=== PATIENT | female | born 1955 | race Caucasian/White ===

== ENCOUNTER 2016-10-27 11:08 | Outpatient (CLI) | payer MEDICARE, OTHER ==
[~2016-10-27 11:08] MED LIST: ALLOPURINOL100 MG PO; ASPIRIN 81MG TA81 MG PO; BACLOFEN 10MG T10 MG PO; CLARITIN 10MG T10 MG PO; CYMBALTA60 MG PO; FLEXERIL10 MG PO; FLONASE 50 MCG16 GM; HUMIRA40 MG/0.3 SQ; KEFLEX 500MG.500 MG PO; LASIX 40MG. TAB40 MG PO; LYRICA 100 MG100 MG PO; METOPROLOL 25 M25 MG PO; NORCO 325 MG-101 TAB PO; NOVOLIN 70/30 710 ML SC; PRAVACHOL80 M1 PO; PREDNISONE 2.52.5 MG PO; PREDNISONE 20MG20 MG PO; PROAIR HFA0.09 MG/AC IH; RANITIDINE HCL150 MG PO; SINGULAIR 10 MG10 MG PO; TIZANIDINE HCL 44 MG PO; VITAMIN D31000 IU PO
[2016-10-27 11:30] VITALS: BP 139/55
[2016-10-27 12:00] VITALS: BP 157/72
[2016-10-27 12:00] LABS: BUN 30 mg/dL (7-18)
[2016-10-27] MEDS ORDERED: XYZAL5 MG PO (12:09)
[2016-10-27 12:11] LABS: GFR (ESTIMATED) 33 ML/MIN (59-)
[2016-10-27] MEDS ORDERED: PREDNISONE 5MG.5 MG PO (12:13)
[2016-10-27] MEDS ORDERED: METHOTREXATE 22.5 MG PO (12:14)
[2016-10-27] MEDS ORDERED: FOLIC ACID 1MG T1 MG PO (12:14)
[2016-10-27 12:30] VITALS: BP 170/82
== END 2016-10-27 12:45 | disposition home or self-care (01) ==
LOC: COP 11:08
PROVIDERS: Family Medicine
DX: E86.0 Dehydration (principal); E87.1 Hypo-osmolality and hyponatremia; N28.9 Disorder of kidney and ureter, unspecified